=== PATIENT | female | born 1985 | race Caucasian/White ===

== ENCOUNTER 2019-09-27 19:15 | Inpatient (IN) | payer OTHER ==
[2019-09-28] MEDS ORDERED: hydrALAZINE 20 MG/ML VIAL SLOW IVP PRN ×2 (06:08→18:23)
[2019-09-28] MEDS ORDERED: Lidocaine 1% (PF) 30 ML VIAL SC PRN (06:08)
[2019-09-28] MEDS ORDERED: Methylergonovine 0.2 MG/ML VIAL IM PRN (06:08)
[2019-09-28] MEDS ORDERED: NS / Oxytocin 40 units/1000ml 1,000 ML IV PRN (06:08)
[2019-09-28] MEDS ORDERED: Carboprost 250 MCG/ML AMP IM PRN (06:08)
[2019-09-28] MEDS ORDERED: Promethazine HCl 25 MG/ML VIAL IM PRN ×3 (06:08→18:23)
[2019-09-28] MEDS ORDERED: Ibuprofen 800 MG TAB PO PRN (06:08)
[2019-09-28] MEDS ORDERED: Butorphanol Tartrate 1 MG/ML VIAL SLOW IVP PRN (06:08)
[2019-09-28] MEDS ORDERED: Misoprostol 200 MCG TAB PR PRN (06:08)
[2019-09-28] MEDS ORDERED: NS w/ Oxytocin 10 units 500 ML IV SCH ×2 (06:08)
[2019-09-28] MEDS ORDERED: HYDROcodone/Acetaminophen 5/325 mg Tablet PO PRN (06:08)
[2019-09-28] MEDS ORDERED: Diphenoxylate HCl/Atropine Tablet PO PRN (06:08)
[2019-09-28] MEDS ORDERED: Ondansetron PF 4 MG/2 ML Vial IVP PRN ×3 (06:08→18:23)
[2019-09-28] MEDS: Lactated Ringer's 1,000 ML IV SCH ×2 (06:20→10:56)
[2019-09-28 06:27] VITALS: BMI 41.1
[2019-09-28 06:46] LABS: Hemoglobin 11.4 g/dL (12.0-16.0); Mean Corpuscular HGB CONC 34.1 g/dL (32.0-36.0); Mean Corpuscular Hemoglobin 31.3 pg (27.0-31.0); Mean Corpuscular Volume 91.8 fL (78.0-98.0); Mean Platelet Volume 6.7 fL (7.4-10.4); Platelet Count 240 thou/uL (130-400); RBC Distribution Width 12.1 % (11.5-14.5); Red Blood Cell (RBC) Count 3.65 mill/uL (4.20-5.40); White Blood Cell (WBC) Count 4.7 thou/uL (4.8-10.8)
[2019-09-28 06:51] LABS: Glucose 90 mg/dL (70-105)
[2019-09-28 07:16] LABS: Syphilis Antibody Nonreactive (Nonreactive); Syphilis Antibody Index 0.01 S/CO (<1.00 Non-Reactive)
[2019-09-28 07:17] LABS: Hep B Surf Ag Non-Reactive S/CO (NonReactive)
[2019-09-28] MEDS: Misoprostol 100 MCG TAB PO SCH ×2 (09:29→21:34)
[2019-09-28] MEDS ORDERED: Fentanyl 4 mcg/Bup 0.1% Cadd 100 ML ONE (10:12)
[2019-09-28] MEDS ORDERED: Naloxone HCl 0.4 mg/ml Vial IVP PRN ×2 (10:40)
[2019-09-28] MEDS ORDERED: diphenhydrAMINE 50 MG/ML VIAL IVP PRN (10:40)
[2019-09-28] MEDS ORDERED: Lactated Ringer's 500 ML IV PRN (10:40)
[2019-09-28] MEDS ORDERED: EPHEDRINE 25 MG/5 ML SYRINGE SLOW IVP PRN (10:40)
[2019-09-28] MEDS ORDERED: Acetaminophen 325 MG TAB PO PRN (10:40)
[2019-09-28] MEDS ORDERED: Fentanyl 4 mcg/Bupivacaine 0.1% Cassette 100 ML EPIDURAL SCH (10:45)
[2019-09-28] MEDS ORDERED: Communication Order-Pharmacy FS SCH (10:45)
[2019-09-28] MEDS ORDERED: Lidocaine 1% (PF) 30 ML VIAL ONE (14:22)
[2019-09-28] MEDS ORDERED: NS / Oxytocin 40 units/1000ml 1,000 ML ONE (14:22)
[2019-09-28] MEDS ORDERED: Bisacodyl 10 MG SUPP PR PRN (18:23)
[2019-09-28] MEDS ORDERED: Lanolin Ointment 7 GM TUBE TOP PRN (18:23)
[2019-09-28] MEDS ORDERED: diphenhydrAMINE 25 MG CAP PO PRN (18:23)
[2019-09-28] MEDS ORDERED: Benzocaine-Menthol 82.5 ML CAN TOP PRN (18:23)
[2019-09-28] MEDS ORDERED: Milk Of Magnesia 30 ML UDCUP PO PRN (18:23)
[2019-09-28] MEDS ORDERED: NS / Oxytocin 40 units/1000ml 1,000 ML IV SCH (18:23)
[2019-09-28] MEDS ORDERED: Ferrous Sulfate 325 MG TAB PO SCH (18:45)
[2019-09-28] MEDS: Docusate Calcium (SURFAK) 240 MG CAP PO SCH (22:07)
[2019-09-29] MEDS ORDERED: Sodium Chloride 0.9% 10 ML ONE (02:15)
[2019-09-29] MEDS: Ibuprofen 800 MG TAB PO SCH ×3 (02:52→18:41)
[2019-09-29 06:40] LABS: Hemoglobin 9.7 g/dL (12.0-16.0); Mean Corpuscular HGB CONC 33.9 g/dL (32.0-36.0); Mean Corpuscular Hemoglobin 31.7 pg (27.0-31.0); Mean Corpuscular Volume 93.4 fL (78.0-98.0); Mean Platelet Volume 6.7 fL (7.4-10.4); Platelet Count 232 thou/uL (130-400); Red Blood Cell (RBC) Count 3.05 mill/uL (4.20-5.40); White Blood Cell (WBC) Count 8.3 thou/uL (4.8-10.8)
[2019-09-29] MEDS ORDERED: Adacel (T-DAP) 0.5 ML SYRINGE IM ONE (09:00)
[2019-09-29] MEDS: Prenatal Vitamin 1 TAB PO SCH (10:53)
[2019-09-29] MEDS: Ferrous Sulfate 325 MG TAB PO SCH ×2 (10:54→18:41)
[2019-09-29] MEDS: Docusate Calcium (SURFAK) 240 MG CAP PO SCH ×2 (10:55→21:34)
[2019-09-30] MEDS: Ibuprofen 800 MG TAB PO SCH ×2 (02:32→08:53)
[2019-09-30 08:28] VITALS: BP 141/72; TEMP 98.3
[2019-09-30] MEDS: Docusate Calcium (SURFAK) 240 MG CAP PO SCH (08:53)
[2019-09-30] MEDS: Prenatal Vitamin 1 TAB PO SCH (08:53)
[2019-09-30] MEDS: Ferrous Sulfate 325 MG TAB PO SCH (08:53)
== END 2019-09-30 10:45 | disposition home or self-care (01) | DRG 807 ==
LOC: L&D 09-28 05:42 → 3SE 09-28 20:34
PROVIDERS: ADMIT Family Medicine; ATTEND Family Medicine
PROC: 10907ZC Drainage of Amniotic Fluid, Therapeutic from Products of Conception, Via Natural or Artificial Opening (ICD-10-PCS; principal; 2019-09-28)
PROC: 3E033VJ Introduction of Other Hormone into Peripheral Vein, Percutaneous Approach (ICD-10-PCS; 2019-09-28)
PROC: 10E0XZZ Delivery of Products of Conception, External Approach (ICD-10-PCS; 2019-09-28)
DX: O24.420 Gestational diabetes mellitus in childbirth, diet controlled (principal); Z37.0 Single live birth; O36.60X0 Maternal care for excessive fetal growth, unspecified trimester, not applicable or unspecified; O70.1 Second degree perineal laceration during delivery; Z3A.39 39 weeks gestation of pregnancy
CPT/HCPCS: 36415; 36416; 82947; 85027; 85461; 86780; 86850; 86900; 86901; 87340; 90384; 96372; J2001; J2590